=== PATIENT | female | born 1985 | race Caucasian/White ===

== ENCOUNTER → 2018-08-21 | Outpatient (CLI) | payer OTHER | LOC: COL.RAD 08-16 08:00 | DX: M25.551 Pain in right hip (principal) | CPT/HCPCS: J3301; Q9967 ==

== ENCOUNTER 2018-08-24 09:07 | Day surgery (SDC) | payer OTHER ==
[~2018-08-24] VITALS: Ht 167.6 cm; Wt 100.9 kg
[2018-08-24] MEDS ORDERED: LEVBID0.375 MG PO (09:15)
[2018-08-24 09:48] VITALS: BP 131/88; PULSE 66; TEMP 98.8
[2018-08-24 11:20] VITALS: BP 119/77; PULSE 65; TEMP 98.6
--- NOTE | 2018-08-24 11:20 | NUR ---
Pt arrives from endo procedure. Pt ambulates from cart to recliner with RN assist x 2. Pt drowsy but answers all questions appropriately. Call light within reach. Monitors on and alarms set. Pt's in room. Report received from EVAN Jarvis. Pt has positive gag reflex. Pt requests muffin and juice. No complaints of pain or nausea.
[2018-08-24 11:30] VITALS: BP 117/81; PULSE 59
[2018-08-24 11:45] VITALS: BP 103/78; PULSE 50
--- NOTE | 2018-08-24 11:45 | NUR ---
Pt taking food and drink well. No complaints voiced by patient.
[2018-08-24 12:00] VITALS: BP 107/69; PULSE 55
--- NOTE | 2018-08-24 12:00 | NUR ---
Discharge instructions given to patient and . All questions answered to their satisfaction. Handed to them are a thank you card, discharge instructions, diagnosis information, and a discharge medication sheet.
--- NOTE | 2018-08-24 12:10 | NUR ---
Pt transferred out of hospital via wheelchair and this RN to private vehicle driven by .
== END 2018-08-24 12:10 | disposition home or self-care (01) ==
LOC: SDCO 09:07
DX: K59.00 Constipation, unspecified (principal); R19.7 Diarrhea, unspecified; Z88.0 Allergy status to penicillin
CPT/HCPCS: J2250; J2405; J3010; J7030

== ENCOUNTER → 2018-09-19 | Outpatient (CLI) | payer OTHER ==
[~2018-09-19] MED LIST: LEVBID0.375 MG PO
== END ==
LOC: COL.RAD 09-18 08:00
DX: M25.552 Pain in left hip (principal)
CPT/HCPCS: J3301; Q9967